=== PATIENT | male | born 1945 | race Caucasian/White ===

== ENCOUNTER 2016-08-24 07:10 | Day surgery (SDC) | payer MEDICARE, OTHER ==
[~2016-08-24] VITALS: Ht 167.6 cm; Wt 90.0 kg
[~2016-08-24 07:10] MED LIST: 0.9% Sodium Chloride 1,000 ML IV SCH; OMEP20TA86 PO; SILD20TA14 PO; Sodium Chloride LOK Flush 10 mL Syringe IV PRN; fentaNYL-PF 50 mCg/mL 2 mL Inj IVPUSH PRN
[2016-08-24 07:40] VITALS: BP 145/79; PULSE 65; RESP 16; O2SAT 94
[2016-08-24] MEDS ORDERED: FLAX1CAP4 PO (07:40)
[2016-08-24] MEDS ORDERED: MULT-666 PO (07:40)
[2016-08-24] MEDS ORDERED: CINN500C14 PO (07:40)
[2016-08-24 08:14] VITALS: BP 106/67; PULSE 63; RESP 14; O2SAT 92
[2016-08-24 08:30] VITALS: BP 114/66; PULSE 82; RESP 14; O2SAT 95
--- NOTE | 2016-08-24 08:30 | ENDO ---
[address] [address] ENDOSCOPY PROCEDURE PATIENT: CHRISTY WANG : 1945 MR#: [id number] ADMIT: 08/24/2016 JOB ID: [id number] PROCEDURE: Colonoscopy. PREOPERATIVE DIAGNOSIS(ES): Family history of colon cancer. POSTOPERATIVE DIAGNOSIS(ES): Normal colonoscopy. ANESTHESIA: Fentanyl 100 mcg, Versed 4 mg IV administered. COMPLICATIONS: None. BLOOD LOSS: Minimal. DESCRIPTION OF PROCEDURE: After risks and benefits were explained to the patient, informed consent was obtained. After anesthesia administered, the colonoscope was inserted from the rectum to the cecum. Mucosa carefully examined. The prep of the patient was excellent. After the procedure was done, the scope withdrawn, procedure terminated. FINDINGS: Upon inspection of the anus, no masses, hemorrhoids, ulcers, or fissures that were seen. Throughout the entire examination, no polyps, masses, ulcers or lesions. Retroflexion was normal. IMPRESSION: Normal colonoscopy. RECOMMENDATIONS: Repeat colonoscopy in five years given family history of colon cancer.
[2016-08-24 08:40] VITALS: BP 131/87; PULSE 67; RESP 17; O2SAT 95
== END 2016-08-24 23:59 | disposition home or self-care (01) ==
LOC: END 07:10
PROVIDERS: ATTEND Internal Medicine Gastroenterology
DX: Z12.11 Encounter for screening for malignant neoplasm of colon (principal); Z80.0 Family history of malignant neoplasm of digestive organs; K21.9 Gastro-esophageal reflux disease without esophagitis
CPT/HCPCS: G0105; G0500; J7030